=== PATIENT | female | born 1955 | race Two or more races ===

== ENCOUNTER 2017-03-23 10:05 | Inpatient (IN) | payer MEDICAID ==
[~2017-03-23] VITALS: Ht 157.5 cm; Wt 115.4 kg
[~2017-03-23 10:05] MED LIST: ENAL-3 PO; HYDR-1421 PO; LORA-205 PO; PAROXETINE PO; PROCARDIA XL PO; ZONI100C35 OR
[2017-03-23 13:16] LABS: Basophils # (auto) 0 uL; Basophils % (auto) 0.7 % (0.0-2.0); Eosinophils # (auto) 0.2 uL; Eosinophils % (auto) 3.1 % (0.0-7.0); Hematocrit 42.6 % (36.0-46.0); Hemoglobin 14.9 g/dL (12.2-16.2); Lymphocytes # (auto) 1.7 uL; Lymphocytes % (auto) 25.8 % (10.0-50.0); Mean Corpuscular Hemoglobin 31.8 pg (28.0-32.0); Mean Corpuscular Hgb Conc. 34.9 g/dL (32.0-36.0); Mean Corpuscular Volume 90.9 fL (80.0-100.0); Mean Platelet Volume 8.2 fL (6.9-10.8); Monocytes # (auto) 0.6 uL; Monocytes % (auto) 8.5 % (0.0-12.0); Neutrophils % (auto) 61.9 % (37.0-80.0); Nucleated Red Blood Cells % 0.1 %; Platelet Count (auto) 151 10^3/uL (140-450); Red Cell Distribution Width 13.3 % (11.8-14.3); White Blood Cell 6.5 10^3/uL (4.4-10.8)
[2017-03-23 13:28] LABS: INR 0.98 (0.9-1.15); Partial Thromboplastin Time 26.7 sec (22.64-33.71); Prothrombin Time 10.7 sec (9.37-12.3)
[2017-03-23 13:30] LABS: Albumin 3.5 g/dL (3.4-5.0); Calcium 8.1 mg/dL (8.5-10.1); Magnesium 2.7 mg/dL (1.6-2.6); Potassium 3.7 mmol/L (3.5-5.1)
[2017-03-23 13:31] LABS: BUN/Creatinine Ratio 18.2
[2017-03-23 13:36] LABS: Bilirubin, Total 0.3 mg/dL (0.2-1.0)
[2017-03-23 13:59] LABS: Urine Bilirubin Negative (Negative); Urine Blood Negative /uL (Negative); Urine Color Yellow (Yellow); Urine Glucose Normal (Normal); Urine Ketone Negative (Negative); Urine Mucus FEW (None Seen); Urine Nitrite Negative (Negative); Urine RBC 2 /hpf (0 - 4); Urine Squamous Epithelial Cell FEW /hpf (<5); Urine Urobilinogen Normal (Negative); Urine pH 6.5 (5.0-8.0)
[2017-03-23] MEDS ORDERED: NITROGLYCERIN 0.4 MG SL TAB SL PRN (14:30)
[2017-03-23] MEDS ORDERED: ACETAMINOPHEN 500 MG TAB PO PRN (14:30)
[2017-03-23] MEDS ORDERED: LACTULOSE 20Gm/30ML SOLN PO PRN (14:30)
[2017-03-23] MEDS ORDERED: TEMAZEPAM 15 MG CAP PO PRN (14:30)
[2017-03-23] MEDS ORDERED: LORazepam 0.5 MG TAB PO PRN (14:30)
[2017-03-23] MEDS ORDERED: HYDROcodone-ACET 5/325MG TAB PO PRN (14:30)
[2017-03-23] MEDS ORDERED: NITROGLYCERIN 0.2MG/HR TOPICAL PATCH TD ONE (15:15)
[2017-03-23] MEDS ORDERED: PANTOPRAZOLE 40 MG TAB PO ONE (15:15)
[2017-03-23] MEDS ORDERED: KETOROLAC TROMETH 30 MG/ML 1ML VIAL IV ONE (15:15)
[2017-03-23] MEDS ORDERED: ENOXAPARIN SOD 40 MG/0.4 ML SYRINGE SC ONE (15:15)
[2017-03-23 20:55] VITALS: BP 148/61
[2017-03-23 21:48] VITALS: BP 149/75
[2017-03-23] MEDS: ATORVASTATIN 20 MG TAB PO SCH (22:51)
[2017-03-23] MEDS: HYDROmorphone HCL 2 MG/ML VL IV PRN (22:52)
[2017-03-24] VITALS (7 sets, daily range): BP systolic 118–169; BP diastolic 56–82
[2017-03-24] MEDS: PANTOPRAZOLE 40 MG TAB PO SCH (09:33)
[2017-03-24] MEDS: ENOXAPARIN SOD 40 MG/0.4 ML SYRINGE SC SCH (09:33)
[2017-03-24] MEDS: HYDROmorphone HCL 2 MG/ML VL IV PRN ×2 (09:42→22:00)
[2017-03-24] MEDS ORDERED: NITROGLYCERIN 0.2MG/HR TOPICAL PATCH TD SCH (10:00)
[2017-03-24] MEDS ORDERED: GABA-497 PO (11:07)
[2017-03-24] MEDS ORDERED: ONDANSETRON HCL 4 MG/2 ML VIAL IV PRN (13:30)
[2017-03-24] MEDS ORDERED: ENALAPRIL MALEATE 10 MG TAB PO ONE (13:30)
[2017-03-24] MEDS: NIFEdipine ER 30 MG TAB PO SCH (14:46)
[2017-03-24] MEDS: HCTZ 25 MG TAB PO SCH (17:38)
[2017-03-24] MEDS: ENALAPRIL MALEATE 10 MG TAB PO SCH (21:59)
[2017-03-24] MEDS: ATORVASTATIN 20 MG TAB PO SCH (21:59)
[2017-03-25 05:07] VITALS: BP 130/64
[2017-03-25 09:00] VITALS: BP 136/45
[2017-03-25] MEDS: HYDROmorphone HCL 2 MG/ML VL IV PRN (09:07)
[2017-03-25] MEDS: ENOXAPARIN SOD 40 MG/0.4 ML SYRINGE SC SCH (09:07)
[2017-03-25] MEDS: PANTOPRAZOLE 40 MG TAB PO SCH (09:08)
[2017-03-25] MEDS: ENALAPRIL MALEATE 10 MG TAB PO SCH (09:09)
[2017-03-25] MEDS: NIFEdipine ER 30 MG TAB PO SCH (09:09)
[2017-03-25] MEDS: HCTZ 25 MG TAB PO SCH (09:10)
[2017-03-25] MEDS ORDERED: ASPirin 81 mg TAB PO SCH (10:00)
[2017-03-25 13:01] VITALS: BP 140/57
[2017-03-25 15:59] VITALS: BP 147/65
[2017-03-28 10:41] LABS: Temperature: 22.4 C (20.0-25.0)
== END 2017-03-25 16:36 | disposition home or self-care (01) | DRG 199 ==
LOC: ER 10:05 → EDBD 10:05 → TELE 10:06 → TELE-WESTW 20:50
PROVIDERS: ADMIT Internal Medicine; ATTEND Internal Medicine
DX: I16.1 Hypertensive emergency (principal); I21.A1 Myocardial infarction type 2; K76.0 Fatty (change of) liver, not elsewhere classified; I69.354 Hemiplegia and hemiparesis following cerebral infarction affecting left non-dominant side; E11.9 Type 2 diabetes mellitus without complications; I16.0 Hypertensive urgency; G40.909 Epilepsy, unspecified, not intractable, without status epilepticus; I10 Essential (primary) hypertension; F41.9 Anxiety disorder, unspecified; E66.01 Morbid (severe) obesity due to excess calories; E26.9 Hyperaldosteronism, unspecified; Z68.42 Body mass index [BMI] 45.0-49.9, adult; I25.2 Old myocardial infarction; Z90.49 Acquired absence of other specified parts of digestive tract; Z88.8 Allergy status to other drugs, medicaments and biological substances; Z87.891 Personal history of nicotine dependence; Z83.3 Family history of diabetes mellitus; Z80.0 Family history of malignant neoplasm of digestive organs; Z82.3 Family history of stroke; Z82.49 Family history of ischemic heart disease and other diseases of the circulatory system
CPT/HCPCS: 36415; 70450; 71020; 80053; 81001; 82550; 82607; 82746; 82962; 83735; 84443; 84484; 85025; 85379; 85610; 85652; 85730; 86141; 93005; 93306; 93886; 94761; 96372; 96375; J1885; J2405

== ENCOUNTER 2017-10-30 13:33 | Inpatient (IN) | payer MEDICAID ==
[~2017-10-30] VITALS: Ht 175.3 cm; Wt 114.6 kg
[~2017-10-30 13:33] MED LIST changes: +GABA300C10 PO
[2017-10-30 14:15] LABS: Basophils # (auto) 0.1 uL; Eosinophils # (auto) 0.2 uL; Eosinophils % (auto) 3.2 % (0.0-7.0); Hematocrit 42.4 % (36.0-46.0); Hemoglobin 14.9 g/dL (12.2-16.2); Lymphocytes # (auto) 1.9 uL; Lymphocytes % (auto) 27.1 % (10.0-50.0); Mean Corpuscular Hemoglobin 31.7 pg (28.0-32.0); Mean Corpuscular Hgb Conc. 35.1 g/dL (32.0-36.0); Mean Corpuscular Volume 90.4 fL (80.0-100.0); Monocytes # (auto) 0.5 uL; Monocytes % (auto) 7.6 % (0.0-12.0); Neutrophils # (auto) 4.3 uL; Neutrophils % (auto) 61.1 % (37.0-80.0); Nucleated Red Blood Cells % 0.2 %; Platelet Count (auto) 189 10^3/uL (140-450); Red Blood Cells 4.69 10^6/uL (4.0-5.20); Red Cell Distribution Width 14.4 % (11.8-14.3); White Blood Cell 7.1 10^3/uL (4.4-10.8)
[2017-10-30 14:29] LABS: INR 0.95 (0.9-1.15); Partial Thromboplastin Time 26.8 sec (23.78-33.04); Prothrombin Time 10.2 sec (9.27-12.13)
[2017-10-30 14:41] LABS: Albumin 3.5 g/dL (3.4-5.0); BUN/Creatinine Ratio 17.9; Bilirubin, Total 0.2 mg/dL (0.2-1.0); Calcium 7.7 mg/dL (8.5-10.1); Potassium 3.3 mmol/L (3.5-5.1); Total Protein 7.1 g/dL (6.4-8.2)
[2017-10-30 19:00] LABS: Urine Bacteria NONE SEEN /hpf (None Seen); Urine Blood Negative /uL (Negative); Urine Specific Gravity 1.022 (1.001-1.035); Urine WBC <1 /hpf (0 - 5)
[2017-10-30] MEDS ORDERED: LORazepam 2MG/ML-1ML VIAL IV PRN (19:45)
[2017-10-30] MEDS ORDERED: ASPirin-EC 81 mg tab PO ONE (19:45)
[2017-10-30] MEDS ORDERED: POTASSIUM CHL 10 Meq TABLET PO ONE (20:00)
[2017-10-30] MEDS ORDERED: DEXTROSE (50%) 50ML SYRG IV PRN (20:00)
[2017-10-30] MEDS ORDERED: cloNIDine HCL 0.1 MG TAB PO PRN (20:00)
[2017-10-30] MEDS ORDERED: TEMAZEPAM 15 MG CAP PO PRN (20:00)
[2017-10-30] MEDS ORDERED: ONDANSETRON HCL 4 MG/2 ML VIAL IV PRN (20:00)
[2017-10-30] MEDS ORDERED: MORPHINE SULF(PF) 0.5MG/ML 10ML VIAL IV PRN (20:00)
[2017-10-30] MEDS ORDERED: DOCUSATE SOD 100 MG CAP PO PRN (20:00)
[2017-10-30] MEDS ORDERED: NITROGLYCERIN 0.4 MG SL TAB SL PRN (20:00)
[2017-10-30] MEDS ORDERED: ACETAMINOPHEN 325 MG TAB PO PRN (20:00)
[2017-10-30 21:50] VITALS: BP 163/66
[2017-10-30] MEDS: InsuLIN REG 1unit/0.01ml Soln (100units/ml) SC SCH (22:00)
[2017-10-30] MEDS: ACCU-CHEK COMFORT CURVE STRIP VI SCH (22:00)
[2017-10-30] MEDS: SODIUM CHLOR 0.9% PF (SALINE LOCK) 10ML VIAL/SYR IV SCH (22:54)
[2017-10-30] MEDS: ATORVASTATIN 20 MG TAB PO SCH (22:59)
[2017-10-30] MEDS: carBAMazepine 200 MG TAB PO SCH (22:59)
[2017-10-30] MEDS: traMADol HCL 50 MG TAB PO PRN (23:00)
[2017-10-30] MEDS: ENALAPRIL MALEATE 10 MG TAB PO SCH (23:01)
[2017-10-30] MEDS: FAMOTIDINE 20 MG TAB PO SCH (23:02)
[2017-10-31 04:11] VITALS: BP 163/66
[2017-10-31 06:00] VITALS: BP 154/70
[2017-10-31] MEDS: SODIUM CHLOR 0.9% PF (SALINE LOCK) 10ML VIAL/SYR IV SCH ×3 (06:09→21:52)
[2017-10-31] MEDS: InsuLIN REG 1unit/0.01ml Soln (100units/ml) SC SCH ×4 (06:34→21:15)
[2017-10-31] MEDS: ACCU-CHEK COMFORT CURVE STRIP VI SCH ×4 (06:34→21:15)
[2017-10-31 06:42] LABS: Basophils # (auto) 0.1 uL; Basophils % (auto) 0.9 % (0.0-2.0); Eosinophils # (auto) 0.2 uL; Eosinophils % (auto) 3.9 % (0.0-7.0); Hematocrit 41.1 % (36.0-46.0); Hemoglobin 14.6 g/dL (12.2-16.2); Mean Corpuscular Hgb Conc. 35.6 g/dL (32.0-36.0); Mean Corpuscular Volume 89.9 fL (80.0-100.0); Monocytes # (auto) 0.5 uL; Monocytes % (auto) 8.4 % (0.0-12.0); Neutrophils # (auto) 3.5 uL; Neutrophils % (auto) 55.8 % (37.0-80.0); Nucleated Red Blood Cells % 0.1 %; Platelet Count (auto) 181 10^3/uL (140-450); Red Blood Cells 4.57 10^6/uL (4.0-5.20); Red Cell Distribution Width 13.8 % (11.8-14.3); White Blood Cell 6.3 10^3/uL (4.4-10.8)
[2017-10-31 06:52] LABS: Albumin 3.5 g/dL (3.4-5.0); BUN/Creatinine Ratio 17.3; Calcium 7.8 mg/dL (8.5-10.1); Potassium 3.7 mmol/L (3.5-5.1)
[2017-10-31 06:54] LABS: Bilirubin, Total 0.3 mg/dL (0.2-1.0); Total Protein 6.9 g/dL (6.4-8.2)
[2017-10-31 09:00] VITALS: BP 153/75
[2017-10-31] MEDS: FAMOTIDINE 20 MG TAB PO SCH ×2 (10:13→21:53)
[2017-10-31] MEDS: MULTIPLE VITAMIN TAB PO SCH (10:13)
[2017-10-31] MEDS: PARoxetine 20 MG TAB PO SCH (10:13)
[2017-10-31] MEDS: ASPirin-EC 81 mg tab PO SCH (10:13)
[2017-10-31] MEDS: NIFEdipine ER 30 MG TAB PO SCH (10:14)
[2017-10-31] MEDS: carBAMazepine 200 MG TAB PO SCH ×2 (10:16→21:52)
[2017-10-31] MEDS: ENALAPRIL MALEATE 10 MG TAB PO SCH ×2 (10:17→21:53)
[2017-10-31] MEDS: ENOXAPARIN SOD 40 MG/0.4 ML SYRINGE SC SCH (10:19)
[2017-10-31 13:11] VITALS: BP 146/79
[2017-10-31 17:00] VITALS: BP 158/75
[2017-10-31] MEDS: traMADol HCL 50 MG TAB PO PRN (21:54)
[2017-10-31] MEDS: ATORVASTATIN 20 MG TAB PO SCH (21:54)
[2017-10-31 22:00] VITALS: BP 153/82
[2017-11-01 05:00] VITALS: BP 140/79
[2017-11-01] MEDS: SODIUM CHLOR 0.9% PF (SALINE LOCK) 10ML VIAL/SYR IV SCH ×3 (06:19→20:33)
[2017-11-01] MEDS: ACCU-CHEK COMFORT CURVE STRIP VI SCH ×3 (06:20→17:00)
[2017-11-01] MEDS: InsuLIN REG 1unit/0.01ml Soln (100units/ml) SC SCH ×3 (06:27→18:59)
[2017-11-01 09:00] VITALS: BP 162/92
[2017-11-01] MEDS ORDERED: CLOPIDOGREL BISULFATE 75 MG TAB PO SCH (10:00)
[2017-11-01] MEDS: PARoxetine 20 MG TAB PO SCH (10:03)
[2017-11-01] MEDS: NIFEdipine ER 30 MG TAB PO SCH (10:04)
[2017-11-01] MEDS: FAMOTIDINE 20 MG TAB PO SCH ×2 (10:05→20:26)
[2017-11-01] MEDS: carBAMazepine 200 MG TAB PO SCH ×2 (10:05→20:25)
[2017-11-01] MEDS: MULTIPLE VITAMIN TAB PO SCH (10:06)
[2017-11-01] MEDS: ASPirin-EC 81 mg tab PO SCH (10:06)
[2017-11-01] MEDS: ENOXAPARIN SOD 40 MG/0.4 ML SYRINGE SC SCH (10:06)
[2017-11-01] MEDS: ENALAPRIL MALEATE 10 MG TAB PO SCH ×2 (10:06→20:26)
[2017-11-01] MEDS ORDERED: LORazepam 2MG/ML-1ML VIAL IV ONE (12:00)
[2017-11-01 13:00] VITALS: BP 155/75
[2017-11-01] MEDS: traMADol HCL 50 MG TAB PO PRN ×2 (13:30→20:26)
[2017-11-01 17:00] VITALS: BP 162/73
[2017-11-01 19:35] LABS: Cholesterol 159 mg/dL (< 200); HDL Cholesterol 36 mg/dL (40-59); LDL Cholesterol 105 mg/dL (< 100); Triglycerides 248 mg/dL (< 150)
[2017-11-01] MEDS: ATORVASTATIN 20 MG TAB PO SCH (20:26)
[2017-11-01 21:11] VITALS: BP 162/84
[2017-11-01 21:49] VITALS: BP 162/84
[2017-11-02 05:14] VITALS: BP 157/76
[2017-11-02] MEDS: SODIUM CHLOR 0.9% PF (SALINE LOCK) 10ML VIAL/SYR IV SCH (05:40)
[2017-11-02 09:00] VITALS: BP 129/72
[2017-11-02] MEDS: FAMOTIDINE 20 MG TAB PO SCH (10:00)
[2017-11-02] MEDS: ENOXAPARIN SOD 40 MG/0.4 ML SYRINGE SC SCH (10:00)
[2017-11-02] MEDS: MULTIPLE VITAMIN TAB PO SCH (11:46)
[2017-11-02] MEDS: carBAMazepine 200 MG TAB PO SCH (11:47)
[2017-11-02] MEDS: PARoxetine 20 MG TAB PO SCH (11:49)
[2017-11-02] MEDS: ENALAPRIL MALEATE 10 MG TAB PO SCH (11:50)
[2017-11-02] MEDS: NIFEdipine ER 30 MG TAB PO SCH (11:50)
[2017-11-03] MEDS ORDERED: ASPirin 325 MG TAB PO SCH (10:00)
== END 2017-11-02 17:10 | disposition home health service (06) | DRG 45 ==
LOC: ER 13:33 → EDBD 13:33 → TELE 13:34 → TELE-WESTW 21:50
PROVIDERS: ADMIT Internal Medicine; ATTEND Internal Medicine Pulmonary Disease
PROC: 5A09357 Assistance with Respiratory Ventilation, Less than 24 Consecutive Hours, Continuous Positive Airway Pressure (ICD-10-PCS; principal; 2017-11-01)
DX: I63.9 Cerebral infarction, unspecified (principal); G93.89 Other specified disorders of brain; I13.10 Hypertensive heart and chronic kidney disease without heart failure, with stage 1 through stage 4 chronic kidney disease, or unspecified chronic kidney disease; I69.354 Hemiplegia and hemiparesis following cerebral infarction affecting left non-dominant side; E83.51 Hypocalcemia; E87.6 Hypokalemia; E66.9 Obesity, unspecified; G40.909 Epilepsy, unspecified, not intractable, without status epilepticus; N18.2 Chronic kidney disease, stage 2 (mild); F17.200 Nicotine dependence, unspecified, uncomplicated; F41.9 Anxiety disorder, unspecified; G47.33 Obstructive sleep apnea (adult) (pediatric); I77.6 Arteritis, unspecified; I67.2 Cerebral atherosclerosis; Z79.02 Long term (current) use of antithrombotics/antiplatelets; Z79.82 Long term (current) use of aspirin; Z79.899 Other long term (current) drug therapy; Z80.0 Family history of malignant neoplasm of digestive organs; Z82.3 Family history of stroke; Z82.49 Family history of ischemic heart disease and other diseases of the circulatory system; Z83.3 Family history of diabetes mellitus; Z90.710 Acquired absence of both cervix and uterus; Z98.51 Tubal ligation status; Z88.5 Allergy status to narcotic agent; Z68.37 Body mass index [BMI] 37.0-37.9, adult
CPT/HCPCS: 36415; 70450; 70551; 71045; 80053; 80061; 81001; 82962; 83036; 83880; 84443; 84484; 85025; 85610; 85652; 85730; 93005; 93306; 93886; 94660; 97116

== ENCOUNTER → 2018-07-25 | Day surgery (SDC) | payer MEDICAID ==
[2018-07-23 14:06] LABS: Basophils # (auto) 0 uL; Basophils % (auto) 0.7 % (0.0-2.0); Eosinophils # (auto) 0.1 uL; Eosinophils % (auto) 2.4 % (0.0-7.0); Hematocrit 41.3 % (36.0-46.0); Hemoglobin 14.4 g/dL (12.2-16.2); Lymphocytes # (auto) 1.3 uL; Lymphocytes % (auto) 21.1 % (10.0-50.0); Mean Corpuscular Hemoglobin 31.8 pg (28.0-32.0); Mean Corpuscular Hgb Conc. 34.8 g/dL (32.0-36.0); Mean Corpuscular Volume 91.3 fL (80.0-100.0); Monocytes # (auto) 0.4 uL; Monocytes % (auto) 5.9 % (0.0-12.0); Neutrophils # (auto) 4.3 uL; Neutrophils % (auto) 69.9 % (37.0-80.0); Platelet Count (auto) 172 10^3/uL (140-450); Red Blood Cells 4.52 10^6/uL (4.0-5.20); Red Cell Distribution Width 13.6 % (11.8-14.3); White Blood Cell 6.2 10^3/uL (4.4-10.8)
[2018-07-23 14:16] LABS: INR 0.98 (0.9-1.15); Partial Thromboplastin Time 27.8 sec (23.78-33.04); Prothrombin Time 10.5 sec (9.27-12.13)
[2018-07-23 14:20] LABS: Albumin 3.6 g/dL (3.4-5.0); Calcium 8.7 mg/dL (8.5-10.1); Potassium 3.3 mmol/L (3.5-5.1)
[2018-07-23 14:24] LABS: BUN/Creatinine Ratio 9.1; Bilirubin, Total 0.3 mg/dL (0.2-1.0); Total Protein 7.4 g/dL (6.4-8.2)
[2018-07-23 14:36] LABS: Urine Bacteria NONE SEEN /hpf (None Seen); Urine Blood Negative /uL (Negative); Urine Mucus FEW (None Seen); Urine Specific Gravity 1.017 (1.001-1.035); Urine WBC 71 /hpf (0 - 5)
[~2018-07-25] VITALS: Ht 157.5 cm; Wt 111.1 kg
[~2018-07-25] MED LIST changes: +BUPIVACAINE 0.75% INJ 10ML MPV SDV IJ ONE; +DEXAMETHASONE SOD PHOS 10MG/1ML VIAL INJ ONE; +HYDROmorphone HCL 2 MG/ML VL IV PRN; +KETOROLAC TROMETH 30 MG/ML 1ML VIAL IV ONE; +LABETALOL HCL 5 MG/ML 4ML SYRINGE IV PRN; +MIDAZOLAM HCL 1MG/1ML-2 ML VIAL IV PRN; +MIDAZOLAM HCL 1MG/1ML-2 ML VIAL ONE; +MORPHINE SULFATE 4 MG/ML SYR/VIAL IV ONE; +ONDANSETRON HCL 4 MG/2 ML VIAL IV ONE; +PROPOFOL 10 MG/ML 20 ML IV ONE; +ceFAZolin 1GM/50ML 50 ML IV ONE; +ePHEDrine SULFATE 50 MG/ML AMP IV PRN; +fentaNYL CITRATE 100 MCG/2 ML VL ONE; +hydrALAZINE HCL 20 MG/ML VL IV PRN
[2018-07-25 11:08] VITALS: BP 146/77
== END | disposition home or self-care (01) ==
LOC: SUR 08:15
PROVIDERS: ATTEND Podiatrist Foot & Ankle Surgery
DX: M20.42 Other hammer toe(s) (acquired), left foot (principal); G40.909 Epilepsy, unspecified, not intractable, without status epilepticus; G47.30 Sleep apnea, unspecified; F32.9 Major depressive disorder, single episode, unspecified; F41.9 Anxiety disorder, unspecified; E66.01 Morbid (severe) obesity due to excess calories; I10 Essential (primary) hypertension; G93.49 Other encephalopathy; Z86.73 Personal history of transient ischemic attack (TIA), and cerebral infarction without residual deficits; Z98.51 Tubal ligation status; Z90.710 Acquired absence of both cervix and uterus; Z98.890 Other specified postprocedural states; Z79.899 Other long term (current) drug therapy; Z68.45 Body mass index [BMI] 70 or greater, adult
CPT/HCPCS: 28285; J3010; L3260; Q4100; 36415; 80053; 81001; 85025; 85610; 85730; J0690; J1100; J2250; J2704; J3490

== ENCOUNTER → 2019-01-08 | Outpatient (CLI) | payer MEDICAID ==
[~2019-01-08] MED LIST changes: -BUPIVACAINE 0.75% INJ 10ML MPV SDV IJ ONE; -DEXAMETHASONE SOD PHOS 10MG/1ML VIAL INJ ONE; -ENAL-3 PO; +ENAL10TA2 PO; -HYDROmorphone HCL 2 MG/ML VL IV PRN; -KETOROLAC TROMETH 30 MG/ML 1ML VIAL IV ONE; -LABETALOL HCL 5 MG/ML 4ML SYRINGE IV PRN; -MIDAZOLAM HCL 1MG/1ML-2 ML VIAL IV PRN; -MIDAZOLAM HCL 1MG/1ML-2 ML VIAL ONE; -MORPHINE SULFATE 4 MG/ML SYR/VIAL IV ONE; -ONDANSETRON HCL 4 MG/2 ML VIAL IV ONE; -PROPOFOL 10 MG/ML 20 ML IV ONE; +ZONI100C16 OR; -ZONI100C35 OR; -ceFAZolin 1GM/50ML 50 ML IV ONE; -ePHEDrine SULFATE 50 MG/ML AMP IV PRN; -fentaNYL CITRATE 100 MCG/2 ML VL ONE; -hydrALAZINE HCL 20 MG/ML VL IV PRN
== END | disposition home or self-care (01) ==
LOC: Rad HDHVI 10:44
PROVIDERS: ATTEND Internal Medicine
DX: I65.23 Occlusion and stenosis of bilateral carotid arteries (principal); I12.9 Hypertensive chronic kidney disease with stage 1 through stage 4 chronic kidney disease, or unspecified chronic kidney disease; N18.2 Chronic kidney disease, stage 2 (mild); R00.2 Palpitations; R53.1 Weakness; Z86.73 Personal history of transient ischemic attack (TIA), and cerebral infarction without residual deficits
CPT/HCPCS: 93306; 93880

== ENCOUNTER → 2019-02-12 | Outpatient (CLI) | payer MEDICAID ==
[~2019-02-12] VITALS: Ht 157.5 cm; Wt 110.7 kg
[~2019-02-12] MED LIST changes: +ADENOSINE 90 MG/30 ML INJ IV ONE; +ADENOSINE 93 MG in GIVE UN-DILUTED 0 ML IV ONE
== END | disposition home or self-care (01) ==
LOC: Rad HDHVI 09:29
PROVIDERS: ATTEND Internal Medicine
DX: Z01.810 Encounter for preprocedural cardiovascular examination (principal); R53.1 Weakness; R32 Unspecified urinary incontinence; I10 Essential (primary) hypertension; E78.00 Pure hypercholesterolemia, unspecified; Z86.73 Personal history of transient ischemic attack (TIA), and cerebral infarction without residual deficits
CPT/HCPCS: 78452; 93005; 96374; 96375; A9500; J0153

== ENCOUNTER → 2019-11-22 | Outpatient (CLI) | payer MEDICAID ==
[~2019-11-22] VITALS: Ht 157.5 cm; Wt 103.0 kg
[~2019-11-22] MED LIST changes: +ADENOSINE 86 MG in GIVE UN-DILUTED 0 ML IV ONE; -ADENOSINE 93 MG in GIVE UN-DILUTED 0 ML IV ONE; +BENA10TA9 PO; +CARB200T4 PO; +CLOP75TA28 PO; +ENAL10TA13 PO; -ENAL10TA2 PO; +NIFE90TA49 PO
== END | disposition home or self-care (01) ==
LOC: Rad HDHVI 10:13
PROVIDERS: ATTEND Internal Medicine
DX: I10 Essential (primary) hypertension (principal); E78.00 Pure hypercholesterolemia, unspecified; E11.9 Type 2 diabetes mellitus without complications; Z82.49 Family history of ischemic heart disease and other diseases of the circulatory system
CPT/HCPCS: 78452; 93005; 96374; 96375; A9500; J0153

== ENCOUNTER → 2022-10-25 | Outpatient (CLI) | payer MEDICAID ==
[~2022-10-25] MED LIST changes: -ADENOSINE 86 MG in GIVE UN-DILUTED 0 ML IV ONE; -ADENOSINE 90 MG/30 ML INJ IV ONE; +BENA-19 PO; -BENA10TA9 PO; -ENAL10TA13 PO; +ENAL1TAB47 PO; +GABA-1250 PO; -GABA300C10 PO; -NIFE90TA49 PO; +NIFE90TA75 PO; -ZONI100C16 OR; +ZONI100C18 OR
== END | disposition home or self-care (01) ==
LOC: Rad HDHVI 09:55
PROVIDERS: ATTEND Internal Medicine Cardiovascular Disease
DX: I10 Essential (primary) hypertension (principal); E78.5 Hyperlipidemia, unspecified
CPT/HCPCS: 93306

== ENCOUNTER → 2022-11-07 | Outpatient (CLI) | payer OTHER ==
[~2022-11-07] VITALS: Ht 157.5 cm; Wt 105.2 kg
[~2022-11-07] MED LIST changes: +ADENOSINE 88 MG in GIVE UN-DILUTED 0 ML IV ONE; +ADENOSINE 90 MG/30 ML INJ IV ONE
== END | disposition home or self-care (01) ==
LOC: Rad HDHVI 13:03
PROVIDERS: ATTEND Internal Medicine Cardiovascular Disease
DX: Z01.810 Encounter for preprocedural cardiovascular examination (principal); I11.0 Hypertensive heart disease with heart failure; I50.33 Acute on chronic diastolic (congestive) heart failure; E78.00 Pure hypercholesterolemia, unspecified
CPT/HCPCS: 78452; 93005; 96374; 96375; A9500; J0153